=== PATIENT | male | born 1955 | race Caucasian/White ===

== ENCOUNTER 2016-05-10 07:04 | Inpatient (IN) | payer OTHER ==
--- NOTE | ~2016-05-10 | OR ---
Unit #: [id number] #: [id number] Patient: DARIA CARCAMO [id number] [address] [address] [id number] I MR#: [id number] NAME: DARIA CARCAMO. ROOM: 302 Date of Procedure: 05/11/2016 Admission Date: 05/10/2016 Surgeon: Guanako Mendez M.D. : 1955 Attending Physician: Tena Townsend M.D. Primary Care Physician: Primary Care Physician No OPERATIVE REPORT PREPROCEDURE DIAGNOSIS Right elbow septic olecranon bursitis. POSTPROCEDURE DIAGNOSIS Right elbow septic olecranon bursitis. PROCEDURE PERFORMED Aspiration of right elbow olecranon bursa. INDICATIONS FOR PROCEDURE Mr. Carcamo is a 60-year-old gentleman with cellulitis of the right upper extremity with swollen olecranon bursa concerning for septic olecranon bursitis. Aspiration is indicated. DESCRIPTION OF PROCEDURE The patient was identified supine on his hospital bed. The arm was placed across the chest on a pillow. The area was prepped with Betadine solution. An 18-gauge needle was utilized to aspirate the olecranon bursa yielding 7.5 mL of frankly purulent fluid. The area was then cleaned and dressed with a Band-Aid. DISPOSITION Plan for formal I and D with olecranon bursectomy in the operating room this afternoon. Fluid sent for culture. Dictated by... Cesar Castaneda/emelia TD: 05/11/2016 22:32 JOB #: [id number] Unit #: [id number] #: [id number] Patient: DARIA CARCAMO OPERATIVE REPORT X Guanako Mendez MD PROCEDURE OPERATIVE NOTE
--- NOTE | ~2016-05-10 | CO ---
Unit #: [id number] #: [id number] Patient: DARIA GUILLEN [id number] [address] [address] [id number] I MR#: [id number] NAME: DARIA GUILLEN. ROOM: 302 Age: 60 Sex: M Admission Date: 05/10/2016 : 1955 Attending Physician: Tena Townsend M.D. Consultation Date: 05/10/2016 CONSULTATION REPORT HISTORY OF PRESENT ILLNESS Mr. Guillen is a 60-year-old white male, known to me, with a history of severe COPD, chronic respiratory failure, who presented to the emergency room because of a 3-week history of increased shortness of breath and cough. He denied any fever or chills. He had been seen in our office by nurse practitioner and being given steroids, but had not improved. In the emergency department, he was noted to have swollen right forearm and elbow. His blood pressure was 94/61, pulse was 121, O2 saturation was 98% on 4 L. Chest x-ray showed no acute infiltrate. We were asked to see. PAST MEDICAL HISTORY Significant for acute on chronic hypoxemic hypercarbic respiratory failure, severe COPD. PAST SURGICAL HISTORY He has no past surgical history. ALLERGIES No known allergies. HOME MEDICATIONS Motrin, Combivent, albuterol, Symbicort, Robaxin, naproxen, aspirin, Xanax, and prednisone. FAMILY HISTORY Diabetes. SOCIAL HISTORY Quit smoking 4 months ago. Retired from welding. Full code. Lives with granddaughter. REVIEW OF SYSTEMS CONSTITUTIONAL: No definite fevers or chills. HEENT: No rhinorrhea or nasal congestion. PULMONARY: Increased shortness of breath and wheezing and cough. GI: No nausea or vomiting. : No hematuria or dysuria. ENDOCRINE: No polyuria or polydipsia. HEMATOLOGIC: No easy bruising or bleeding. SKIN: Does have some swelling and redness of the right forearm and elbow. NEURO: No unilateral weakness or numbness. PHYSICAL EXAMINATION GENERAL: White male, in mild distress. Unit #: [id number] #: [id number] Patient: DARIA GUILLEN VITAL SIGNS: Blood pressure 96/66, pulse 90, respiratory rate 20, afebrile. HEENT: Normocephalic and atraumatic. Pupils are equal, round, and reactive. Sclerae nonicteric. Nasal passages patent. Poor dentition. Mucous membranes moist. NECK: Supple. Trachea midline. No cervical or supraclavicular lymphadenopathy. LUNGS: Reveal expiratory wheeze bilaterally. CARDIAC: Regular rate and rhythm. Could not appreciate murmur, rub, or gallop. ABDOMEN: Nontender. Bowel sounds present. No hepatosplenomegaly. EXTREMITIES: Without clubbing, cyanosis, or edema. Right forearm is swelling around the elbow, some erythema. Radial pulses present. DIAGNOSTIC STUDIES LABORATORY RESULTS: Reviewed. Arterial blood gases, pH 7.41, pCO2 of 56, pO2 of 99 on 3 L. Glucose 146, creatinine normal. IMAGING STUDIES: Chest x-ray is personally reviewed. IMPRESSION 1. Likely septic joint. 2. Chronic obstructive pulmonary disease exacerbation. 3. Acute on chronic hypoxemic respiratory failure. RECOMMENDATIONS Inhaled bronchodilators, IV Solu-Medrol, supplemental oxygen. Broad-spectrum antibiotics for a joint space infection. Orthopedics to see for evaluating joint space infection. Dictated by... Luigi Belcher M.D. SAMANTHA/emelia TD: 05/11/2016 20:54 JOB #: [id number] CONSULTATION REPORT X Luigi Belcher MD X CONSULTATION REPORT
--- NOTE | ~2016-05-10 | CR72 ---
[facility] A Service of [facility] RADIOLOGY TEXT RESULTS PATIENT: DARIA GUILLEN LOCATION: [facility] : 59 UNIT #: [id number] AGE: [address]: Chris White MD SEX: M ORDER DR: [id number] [facility] [address] [place], [place] [address] [id number] E MR#: [id number] Acc #: [id number] NAME: DARIA GUILLEN. : 1955 SEX: M STUDY DATE/TIME: 05/10/2016 6:36 UNIT: [facility] ROOM: STUDY DESCRIPTION: CR Chest Single View Portable Attending Physician: Chris White M.D. Ordering Physician: Chris White M.D. Primary Care Physician: Primary Care Physician No MEDICAL IMAGING REPORT This report is preliminary unless electronic signature is present EXAM Portable chest HISTORY Difficulty breathing for 3-4 days, shortness of air. COMPARISON 06/26/2015. FINDINGS Portable view of the chest demonstrates marked hyperinflation and hyperlucency compatible with underlying emphysema. No acute airspace disease or consolidation. No effusions. Heart, mediastinum unremarkable except for minimal aortic atherosclerotic changes. Parenchymal opacity in the left midlung zone noted on the patient's study of June 2015 has resolved. No invasive tubes or lines. No visible pneumothorax. Dictated by... Evie Meza M.D. THIS IS AN ELECTRONICALLY VERIFIED REPORT Evie Meza M.D. at 05/10/2016 8:10 AM KENNETH/silviano TD: 05/10/2016 08:06 JOB #: [id number] MEDICAL IMAGING REPORT COPY
--- NOTE | ~2016-05-10 | CR94 ---
[facility] A Service of [facility] RADIOLOGY TEXT RESULTS PATIENT: DARIA GUILLEN LOCATION: [facility] : 59 UNIT #: [id number] AGE: [address]: Tomasa Gordon MD SEX: M ORDER DR: [id number] [place] [address] [place], [place] [address] [id number] MR#: [id number] Acc #: [id number] NAME: DARIA GUILLEN. : 1955 SEX: M STUDY DATE/TIME: 05/10/2016 6:39 UNIT: [facility] ROOM: STUDY DESCRIPTION: CR Elbow Min 3 Views Rt Attending Physician: Chris White M.D. Ordering Physician: Chris White M.D. Primary Care Physician: Primary Care Physician No MEDICAL IMAGING REPORT This report is preliminary unless electronic signature is present EXAM Right elbow 3 views HISTORY Pain, swelling right elbow x3 days. FINDINGS 3 views of the right elbow demonstrate soft tissue swelling about the elbow and possibly within the forearm. No fracture or dislocation. No joint effusion. No radiopaque foreign body. No definite soft tissue gas. IMPRESSION Soft tissue swelling about the elbow most prominent along the posterior aspect of the elbow. No definite internal derangement of the joint. Underlying osseous structures unremarkable. Findings could reflect cellulitis and if focal in the posterior elbow could represent olecranon bursitis. There does appear to be proximal forearm soft tissue swelling as well which would tend to favor cellulitis. Dictated by... Evie Meza M.D. THIS IS AN ELECTRONICALLY VERIFIED REPORT Evie Meza M.D. at 05/10/2016 3:57 PM KENNETH/silviano TD: 05/10/2016 08:07 JOB #: [id number] MEDICAL IMAGING REPORT COPY
--- NOTE | ~2016-05-10 | HP ---
Unit #: [id number] #: [id number] Patient: DARIA GUILLEN [id number] [address] [address] [id number] I MR#: [id number] NAME: DARIA GUILLEN. ROOM: 01105 Age: 60 Sex: M Admission Date: 05/10/2016 : 1955 Attending Physician: Tomasa Gordon M.D. Primary Care Physician: No Primary Care Physician HISTORY AND PHYSICAL CHIEF COMPLAINT Shortness of breath. HISTORY OF PRESENT ILLNESS The patient is a 60-year-old male with a past medical history of COPD, chronic respiratory failure who presented to the emergency department for evaluation of the above. The patient states that he has had at least a two to three week history of increasing shortness of breath and nonproductive cough. He states that he has had chest wall pain in association with a cough. He denies any fever. No vomiting or diarrhea. No urinary symptoms. He states that he has been to Dr. Belcher's office, but no actually seen Dr. Belcher. The most recent time was last week when he was given prednisone. He has been taking it as prescribed with no improvement of his symptoms. In the emergency department initial oxygen saturation was 98% on 4 L. Pulse 121, blood pressure 94/61. Chest x-ray shows no acute abnormality. He was given 125 mg of Solu-Medrol, as well as two L of normal saline in the emergency department. Also of note, the patient reports right elbow pain. He states that he noted a "knot" on his right elbow on the day prior to admission. He states that he may have bumped his elbow getting in an out of the car but he did not remember for sure. He states that today his elbow because increasing swollen, red and painful. An x-ray was done and showed findings concerning for possible cellulitis versus olecranon bursitis. He was given a dose of vancomycin. PAST MEDICAL HISTORY 1. Admission to [facility] 04/18/2014 through 04/23/2014 for acute on chronic respiratory failure. 2. COPD followed by Dr. Belcher. 3. Chronic respiratory failure on 2 L of oxygen per nasal cannula. PAST SURGICAL HISTORY None. SOCIAL HISTORY The patient's 8-year-old granddaughter lives with him. He quit smoking four months ago. He is retired from [email or web address]. His code status is a full code. FAMILY HISTORY Notable for his mother having diabetes. Unit #: [id number] #: [id number] Patient: DARIA GUILLEN ALLERGIES No known allergies. HOME MEDICATIONS Motrin 600 mg q.12 hours p.r.n.; Combivent inhaled q.6 hours p.r.n.; albuterol two puffs q.4 hours p.r.n.; Symbicort 160/4.5 two puffs inhaler twice daily; Robaxin 500 mg q.12 hours p.r.n.; naproxen 500 mg twice daily p.r.n.; aspirin 81 mg daily; Xanax 0.25 mg q.12 hours p.r.n.; prednisone 20 mg daily. REVIEW OF SYSTEMS A complete review of systems is negative except as indicated in the HPI. PHYSICAL EXAMINATION VITAL SIGNS: Temperature is 98.2 pulse 121, respirations 22, blood pressure 94/61, oxygen saturation 98% on 4 L. GENERAL: The patient is a male who is awake and alert. HEENT: Head is atraumatic. Mucous membranes are moist. NECK: Supple. Trachea is midline. CARDIOVASCULAR: Regular rate and rhythm. LUNGS: Demonstrate inspiratory and expiratory wheezes. Breathing is mildly labored with conversation. ABDOMEN: Soft, nontender with bowel sounds present in all four quadrant. EXTREMITIES: There is no pedal edema. Lower extremities are nontender. NEUROLOGIC: The patient is awake and alert. He follows commands. PSYCH: Mood and affect are normal. Patient is cooperative. SKIN: The right elbow demonstrates an area of erythema, warmth, edema, and tenderness to palpation. The edema extends to involve the forearm. He has decreased range of motion secondary to pain. There is a 2+ radial pulse. DIAGNOSTIC STUDIES CARDIOLOGY STUDIES: EKG shows sinus tachycardia with a rate of 107 BPM. IMAGING STUDIES: Chest x-ray shows no acute abnormality. Elbow x-rays show findings concerning for possible bursitis versus cellulitis. LABORATORY STUDIES: Troponin is less than 0.05. Arterial blood gas shows a pH 7.41, pCO2 56.2, pO2 99 on 3 L. Rapid flu screen is negative. Lactic acid 1.3, comprehensive metabolic panel notable for chloride of 95, bicarb 36, albumin 3.3. Complete blood count notable for white blood cell count of 19.8. BNP is 38, INR 0.9. D-dimer 457. ASSESSMENT The patient is a 60-year-old male with: 1. COPD exacerbation. The patient received Solu-Medrol in the emergency department. 2. Chronic respiratory failure on 3 L of oxygen per nasal cannula continuous. 3. Right elbow pain concerning for possible bursitis versus cellulitis. The patient received vancomycin the emergency department. 4. Sepsis. The patient's white blood cell count is 19.8 and he is tachycardic. Of note, he has been on steroids. 5. Former smoker. PLANS Unit #: [id number] #: [id number] Patient: DARIA GUILLEN 1. Admit to an intermediate level. 2. Normal saline at 75 mL an hour. 3. Healthy heart diet. 4. Supplemental oxygen 2 to 4 L to maintain saturations greater than 92%. 5. DuoNeb q.4 hours while awake and q. 2 hours p.r.n. 6. Solu-Medrol 80 mg IV q.12 hours. 7. Mucinex 600 mg p.o. b.i.d. 8. Consult Dr. Belcher regarding COPD exacerbation. 9. Blood cultures x2 if not done. 10. Vancomycin IV and Zosyn IV pending further workup. 11. Consult orthopedics about bursitis versus cellulitis. 12. Protonix for GI prophylaxis since the patient will be on Solu-Medrol. 13. SCDs for DVT prophylaxis. 14. Repeat labs in the morning. 15. Additional workup and consults based on above. Dictated by Cesar Drummond/tiffany TD: 05/10/2016 12:03 JOB #: [id number] HISTORY AND PHYSICAL X Tomasa Gordon MD X HISTORY AND PHYSICAL
--- NOTE | ~2016-05-10 | OR ---
Unit #: [id number] #: [id number] Patient: DARIA CARCAMO [id number] [address] [address] [id number] I MR#: [id number] NAME: DARIA CARCAMO. ROOM: 302 Date of Procedure: 05/11/2016 Admission Date: 05/10/2016 Surgeon: Guanako Mendez M.D. : 1955 Attending Physician: Tena Townsend M.D. Primary Care Physician: Primary Care Physician No OPERATIVE REPORT PREOPERATIVE DIAGNOSIS Right septic olecranon bursitis. POSTOPERATIVE DIAGNOSIS Right septic olecranon bursitis. PROCEDURE PERFORMED Right elbow debridement with olecranon bursectomy. SIZE PAINTER Delfina Alexandre APRN, RNFA. ANESTHESIA General. ESTIMATED BLOOD LOSS 10 mL. SPECIMENS Cultures to microbiology. COMPLICATIONS None apparent. INDICATIONS FOR PROCEDURE Mr. Carcamo is a 60-year-old gentleman with septic olecranon bursitis by aspiration. Operative intervention was warranted for debridement. The nature of the surgery was discussed with the patient. He elected to proceed. DESCRIPTION OF PROCEDURE The patient was identified in the preoperative holding area. The operative site was marked. The patient is on standing IV antibiotics and further preoperative antibiotics were not indicated. The patient was brought to the operating room and placed supine on the operating table. A general anesthetic was induced. The patient was positioned supine with the right upper extremity across his chest. The arm was exsanguinated with gravity exsanguination. An Esmarch bandage applied around the upper arm as a tourniquet. The Esmarch was not used to exsanguinate the extremity. The skin incision was marked out over the olecranon curving slightly radially around the tip of the olecranon. The skin was incised sharply. Dissection was carried down to the subcutaneous tissue. Unit #: [id number] #: [id number] Patient: DARIA CARCAMO Immediately upon entering the bursa, a large volume of purulent fluid was expressed under pressure. Cultures were obtained. Medial and lateral skin flaps were then elevated and circumferential dissection carried out around the affected bursal tissues. The bursa was excised with dissection with a 15 and 10-blade knife. This was then passed off the back table. The area was then debrided further with rongeurs. The wound was then irrigated. Hemostasis was achieved with Bovie electrocautery. The tourniquet was removed and the remaining vessels were cauterized. The wound was again irrigated and then closed with 3-0 nylon over a subcutaneous drain. Well-padded soft dressing was applied. DISPOSITION Stable to the recovery room. Dictated by... Cesar Castaneda/emelia TD: 05/12/2016 00:31 JOB #: [id number] OPERATIVE REPORT X Guanako Mendez MD X PROCEDURE OPERATIVE NOTE
--- NOTE | ~2016-05-10 | EKG ---
PATIENT: DARIA GUILLEN UNIT #: [id number] Ventricular Rate: 107 BPM Atrial Rate: 107 BPM P-R Interval: 130 ms QRS Duration: 76 ms Q-T Interval: 310 ms QTC Calculation(Bezet): 413 ms P [place]: 80 degrees Calculated R [place]: 67 degrees Calculated T [place]: 74 degrees Diagnosis Line: Sinus tachycardia Diagnosis Line: Otherwise normal ECG Diagnosis Line: When compared with ECG of 26-JUN-2015 18:05, Diagnosis Line: No significant change was found Diagnosis Line: Confirmed by URSZULA KELSEY MD ([id number]) on 05/10/2016 Diagnosis Line: 6:25:02 PM INTERPRETING MD: LOW [place]
--- NOTE | ~2016-05-10 | DS ---
Unit #: [id number] #: [id number] Patient: DARIA GUILLEN [id number] [address] [address] [id number] I MR#: [id number] NAME: DARIA GUILLEN. ROOM: 302 Age: Sex: M Admission Date: 05/10/2016 : 1955 Discharge Date: Attending Physician: Tena Townsend M.D. Primary Care Physician: No Primary Care Physician DISCHARGE SUMMARY DIAGNOSES ON ADMISSION 1. Acute exacerbation of chronic obstructive pulmonary disease. 2. Acute on chronic respiratory failure. 3. Right elbow pain. DIAGNOSES ON DISCHARGE 1. Acute exacerbation of chronic obstructive pulmonary disease, improved. 2. Chronic respiratory failure. 3. Right septic olecranon bursitis status post debridement secondary to Streptococcus pyrogenes. 4. Sepsis, resolved. CONSULTATIONS 1. Dr. Belcher in Pulmonary consultation. 2. Dr. Mendez in Orthopaedic consultation. LABS AND PROCEDURES DONE 1. The patient had a right elbow debridement. 2. The patient's creatinine is 0.6, sodium 145, potassium 4.1. WBC 11.0, hemoglobin 11.1, platelet count 256. 3. The patient's wound culture was positive for Streptococcus pyrogenes. 4. Blood culture did not reveal any growth so far. 5. Influenza A and B screen was negative. 6. Hemoglobin A1C was 6.0. 7. BNP was 38. 8. Chest x-ray revealed COPD. No acute disease. HOSPITAL COURSE This 60-year-old male was admitted to [facility] with shortness of air. Details are as per admission H and P. Acute exacerbation of COPD: The patient was seen by Dr. Belcher in consultation and was treated with Solu-Medrol which was gradually tapered off and the patient is on prednisone now. He is feeling much better. Acute on chronic respiratory failure: The patient is on home O2 and is currently on three liters of oxygen which he uses at home. Right elbow pain: The patient was seen by Dr. Mendez in consultation and diagnosed with septic olecranon bursitis and debridement was performed. Wound cultures are positive for Streptococcus pyrogenes. The patient is feeling much better today and wants to go home. Unit #: [id number] #: [id number] Patient: DARIA GUILLEN PHYSICAL EXAMINATION VITAL SIGNS: Temperature 98.1. Pulse 72 per minute. Respiratory rate 18 per minute. Blood pressure 167/87. HEENT: No conjunctival congestion. Sclerae are nonicteric. NECK: Supple. Trachea is central. RESPIRATORY: Decreased breath sounds bilaterally. There are no wheezes or crackles. HEART: Regular rate and rhythm. S1, S2. ABDOMEN: Soft, nontender. Bowel sounds are present in all four quadrants. EXTREMITIES: (1) edema. There is a right elbow dressing. SKIN: Warm and dry. CONDITION Stable. ACTIVITY As tolerated. MEDICATIONS ON DISCHARGE 1. Ventolin two puffs q.4 hours p.r.n. for shortness of air 2. Symbicort 160/4.5 mcg p.o. daily. 3. DuoNeb mini neb treatment q.4 hours while awake and q.2 hours p.r.n. 4. Prednisone as per Dr. Belcher. 5. Tylenol 650 mg p.o. daily. 6. Nystatin 5 mL swish and swallow for one week. 7. Enteric coated aspirin 81 mg p.o. daily. 8. Hydrocodone 5 mg one p.o. q.8 hours p.r.n., #15 were dispensed. 9. Methocarbamol 500 mg p.o. b.i.d. p.r.n. pain. 10. Augmentin 875 mg p.o. b.i.d. for one week. FOLLOWUP The patient is advised to follow up with primary care physician in one week and with Dr. Mendez and Dr. Belcher as recommended. The patient is advised to call primary care physician or go to ER if his condition changes. The plan was discussed in detail with the patient who showed complete understanding. The patient is advised to call primary care physician or go to ER if his condition changes. Additional job #[id number] 05/16/2016 9:34 a.m. Dictated by... Cesar Rangel TD: 05/16/2016 10:09 JOB #: [id number] CC: Luigi Belcher M.D. Unit #: [id number] #: [id number] Patient: DARIA GUILLEN DISCHARGE SUMMARY X Tena Townsend MD DISCHARGE SUMMARY
--- NOTE | ~2016-05-10 | CO ---
Unit #: [id number] #: [id number] Patient: DARAI CARCAMO [id number] [address] [address] [id number] I MR#: [id number] NAME: DARIA CARCAMO. ROOM: 302 Age: 60 Sex: M Admission Date: 05/10/2016 : 1955 Attending Physician: Tena Townsend M.D. Primary Care Physician: Primary Care Physician No Consultation Date: 05/10/2016 CONSULTATION REPORT CHIEF COMPLAINT Right elbow pain. HISTORY OF PRESENT ILLNESS Mr. Carcamo is a 60-year-old gentleman with COPD, on 2 L of oxygen chronically, who is being admitted with chronic respiratory failure and COPD exacerbation and technically meets sepsis criteria. He additionally has a 1 to 2 day history of right elbow pain and swelling. He is uncertain that he has struck or bumped the right elbow getting out of a vehicle. His elbow has become increasingly tender to the touch and there was some painful swelling in his forearm as well. He denies any similar illness. He denies any fevers or chills at home. PAST MEDICAL HISTORY 1. Chronic respiratory failure, on 2 L of oxygen per nasal cannula. 2. COPD. 3. History of a recent admission for COPD exacerbation. PAST SURGICAL HISTORY None. MEDICATIONS Motrin, Combivent, Symbicort, albuterol, Robaxin, naproxen, aspirin, Xanax, prednisone. ALLERGIES No known drug allergies. SOCIAL HISTORY The patient has no current alcohol or tobacco use. He has only stopped smoking as of 4 months ago. He has an 8-year-old granddaughter, who lives with him. He is retired. He is a full code. FAMILY HISTORY Diabetes mellitus in his mother. REVIEW OF SYSTEMS Ten systems are reviewed and negative except as noted in the HPI, as well as shortness of breath. PHYSICAL EXAMINATION GENERAL APPEARANCE: He appears older than stated age. He is somewhat disheveled appearing. HEENT: Normocephalic and atraumatic cranium. Pupils are equally round Unit #: [id number] #: [id number] Patient: DARIA CARCAMO and reactive to light. NECK: Supple. No lymphadenopathy. No JVD. CARDIAC: Regular rate and rhythm. PULMONARY: No increased work of breathing. Speaks in full sentences. He has audible expiratory wheeze. ABDOMEN: Nontender, nondistended. NEUROLOGIC: Intact median, ulnar, and radial nerve motor and sensory function in the right hand. VASCULAR: His hand is warm and well perfused. SKIN: He has soft tissue swelling about the dorsal forearm of the right upper extremity. There was cellulitis overlying the forearm and the olecranon. MUSCULOSKELETAL: He has a small olecranon bursitis with a fairly small fluid collection here. There is no overt evidence of septic bursitis. There is no induration. The erythema seems diminished from where this was marked out previously on the skin. He does have some painful range of motion from 30 to 105. Overall, exam is not indicative of septic arthritis of the elbow joint itself however. DIAGNOSTIC STUDIES IMAGING STUDIES: Plain film radiographs reviewed and demonstrates soft tissue swelling, but otherwise unremarkable. LABORATORY RESULTS: White blood cell count is elevated at 19.8. IMPRESSION A 60-year-old gentleman with right elbow pain with olecranon bursitis and surrounding cellulitis. It is not clear if this is a true septic olecranon bursitis. PLAN At this point, we will continue to follow his response to IV antibiotics. It appears that his cellulitis is actually improved from the area which was marked out over the elbow previously. We will follow the evolution of his clinical exam. If he fails to have continued improvement, we may aspirate the olecranon bursa tomorrow. He will be n.p.o. after midnight in case surgical intervention should be required if he fails overnight IV antibiotics. Dictated by... Cesar Castaneda/emelia TD: 05/11/2016 15:23 JOB #: [id number] CONSULTATION REPORT X Guanako Mendez MD CONSULTATION REPORT
[2016-05-10 06:54] LABS: POC - CKMB 3.1 ng/mL (0.0-7.9); POC - TROPONIN <0.05 ng/mL (<=0.05)
[2016-05-10 07:04] LABS: ARTERIAL BLD GAS O2 SATURATION 95.4 % (90.0-100.0); ARTERIAL BLOOD GAS HCO3 35.6 mmol/L
[~2016-05-10 07:04] MED LIST: ACETAMINOPHEN325 MG PO; ALBUTEROL17 GM INH; ALPRAZOLAM PO; ALPRAZOLAM0.25 MG PO; ASPIRIN EC81 M1 PO; ASPIRIN81 M2 PO; BENZONATATE PO; COMBIVENT MININEB INH; COMBIVENT RESPIM4 GM INH; COMBIVENT U/D3 M1 INH; EC-NAPROSYN500 MG PO; GUAIFENESIN600 MG PO; IPRAT-ALBUT 0.5-3 ML INH; LEVAQUIN PO; LEVOFLOXACIN500 MG PO; LIPITOR20 MG PO; MOTRIN600 M1 PO; MUCINEX DM ER1 EACH PO; NICOTINE TRANSD14 MG EXT; NICOTINE TRANSD21 MG TP; NO MEDICATIONS; PREDNISONE PO; PROAIR HFA8.5 GM IH; PULMICORT0.5 MG/2 M IH; QVAR7.3 G1 IH; ROBAXIN500 MG PO; SYMBICORT INH; ZYLOPRIM PO
[2016-05-10 07:05] LABS: ARTERIAL BLOOD GAS PCO2 56.2 mmHg (35.0-45.0)
[2016-05-10 07:06] LABS: ARTERIAL BLOOD GAS ALLEN TEST NORMAL; ARTERIAL BLOOD GAS ART SITE LEFT RADIAL; ARTERIAL BLOOD GAS DELIVERY NASAL CANNULA; ARTERIAL DRAW? YES
[2016-05-10 07:13] LABS: BASOPHIL# 0.1 X10e3 (0-0.3); BASOPHIL% 0.3 % (0-2.5); EOSINOPHIL% 0.1 % (0.0-7.0); HEMATOCRIT 40.7 % (38.0-50.0); HEMOGLOBIN 13.5 gm/dL (13.0-16.0); LYMPHOCYTE% 5.2 % (17.0-45.0); MEAN CELL VOLUME 97.4 FL (83-96); MEAN CORPUSCULAR HEMOGLOBIN 32.4 PG (28-34); MEAN CORPUSCULAR HGB CONC 33.3 g/dL (30-36); MEAN PLATELET VOLUME 7.7 FL (6.5-11.5); MONOCYTE# 1.2 X10e3 (0-1.0); NEUTROPHIL# 17.6 X10e3 (1.5-7.1); NEUTROPHIL% 88.4 % (40-75); PLATELET COUNT 260 X10e3 (140-420); RED BLOOD COUNT 4.18 X10e (3.90-5.60); RED CELL DISTRIBUTION WIDTH 15.4 % (11.0-15.5); WHITE BLOOD COUNT 19.8 X10e3 (4.0-10.5)
[2016-05-10 07:14] LABS: DIFF IND YES
[2016-05-10 07:21] LABS: INFLUENZA A NEG (NEG); INFLUENZA B NEG (NEG)
[2016-05-10 07:29] LABS: INR 0.9; PARTIAL THROMBOPLASTIN TIME 24.7 SECONDS (23.5-31.3); PROTHROMBIN TIME (PATIENT) 9.7 SECONDS (9.6-11.5)
[2016-05-10 07:37] LABS: ALBUMIN SERUM 3.3 g/dL (3.5-5.0); ALKALINE PHOSPHATASE 71 U/L (32-92); ALT (SGPT) 22 U/L (10-40); AST (SGOT) 18 U/L (10-42); BILIRUBIN, DIRECT 0.2 mg/dL (0.0-0.2); BILIRUBIN,INDIRECT 0.6 mg/dL (0.0-0.9); BILIRUBIN,TOTAL 0.8 mg/dL (0.2-2.0); BLOOD UREA NITROGEN 13 mg/dL (9-23); BUN/CREATININE RATIO 14.44; CALCIUM SERUM 8.5 mg/dL (8.4-10.2); CARBON DIOXIDE 36 mmol/L (22-31); CHLORIDE 95 mmol/L (100-111); CREATININE SERUM 0.9 mg/dL (0.6-1.4); GLOM FILT RATE Estimated ABOVE60 mL/min (>60); GLUCOSE FASTING 85 mg/dL (70-110); POTASSIUM 4.1 mmol/L (3.5-5.1); PROTEIN TOTAL SERUM 6.4 g/dL (6.0-8.3); SODIUM 137 mmol/L (135-145)
[2016-05-10 07:42] LABS: PLATELET ESTIMATE NORMAL (NORMAL); RBC NORMAL YES
[2016-05-10 07:43] LABS: ANISOCYTOSIS SL
[2016-05-10 08:12] LABS: POC - CKMB 1.4 ng/mL (0.0-7.9); POC - TROPONIN <0.05 ng/mL (<=0.05)
[2016-05-10 09:56] LABS: CK TOTAL 40 IU/L (36-174)
[2016-05-10 16:40] LABS: CK TOTAL 30 IU/L (36-174)
[2016-05-11 06:08] LABS: BASOPHIL# 0.1 X10e3 (0-0.3); BASOPHIL% 0.3 % (0-2.5); HEMATOCRIT 35.2 % (38.0-50.0); LYMPHOCYTE# 0.5 X10e3 (1.0-3.5); LYMPHOCYTE% 2.2 % (17.0-45.0); MEAN CELL VOLUME 98.6 FL (83-96); MEAN CORPUSCULAR HEMOGLOBIN 31.4 PG (28-34); MEAN CORPUSCULAR HGB CONC 31.8 g/dL (30-36); MONOCYTE# 0.9 X10e3 (0-1.0); MONOCYTE% 3.8 % (3.0-12.0); NEUTROPHIL# 22.7 X10e3 (1.5-7.1); NEUTROPHIL% 93.7 % (40-75); PLATELET COUNT 218 X10e3 (140-420); RED BLOOD COUNT 3.57 X10e (3.90-5.60); RED CELL DISTRIBUTION WIDTH 15.3 % (11.0-15.5); WHITE BLOOD COUNT 24.2 X10e3 (4.0-10.5)
[2016-05-11 06:10] LABS: DIFF IND NO; HEMOGLOBIN 11.2 gm/dL (13.0-16.0)
[2016-05-11 06:51] LABS: ALBUMIN SERUM 2.4 g/dL (3.5-5.0); ALKALINE PHOSPHATASE 57 U/L (32-92); ALT (SGPT) 19 U/L (10-40); AST (SGOT) 16 U/L (10-42); BILIRUBIN,TOTAL 0.6 mg/dL (0.2-2.0); BLOOD UREA NITROGEN 17 mg/dL (9-23); BUN/CREATININE RATIO 21.25; CALCIUM SERUM 8.6 mg/dL (8.4-10.2); CARBON DIOXIDE 30 mmol/L (22-31); CHLORIDE 105 mmol/L (100-111); CREATININE SERUM 0.8 mg/dL (0.6-1.4); GLOM FILT RATE Estimated ABOVE60 mL/min (>60); GLUCOSE FASTING 146 mg/dL (70-110); POTASSIUM 4.2 mmol/L (3.5-5.1); PROTEIN TOTAL SERUM 5.2 g/dL (6.0-8.3); SODIUM 142 mmol/L (135-145)
[2016-05-12 05:56] LABS: HEMATOCRIT 30.9 % (38.0-50.0); MEAN CELL VOLUME 98.8 FL (83-96); MEAN CORPUSCULAR HEMOGLOBIN 31.8 PG (28-34); MEAN CORPUSCULAR HGB CONC 32.2 g/dL (30-36); MEAN PLATELET VOLUME 8.4 FL (6.5-11.5); RED BLOOD COUNT 3.13 X10e (3.90-5.60); RED CELL DISTRIBUTION WIDTH 15.4 % (11.0-15.5)
[2016-05-12 07:13] LABS: BLOOD UREA NITROGEN 17 mg/dL (9-23); BUN/CREATININE RATIO 24.28; CALCIUM SERUM 8.4 mg/dL (8.4-10.2); CARBON DIOXIDE 30 mmol/L (22-31); CHLORIDE 105 mmol/L (100-111); CREATININE SERUM 0.7 mg/dL (0.6-1.4); GLOM FILT RATE Estimated ABOVE60 mL/min (>60); GLUCOSE FASTING 150 mg/dL (70-110); POTASSIUM 4.1 mmol/L (3.5-5.1); SODIUM 142 mmol/L (135-145)
[2016-05-13 05:14] LABS: HEMATOCRIT 31.6 % (38.0-50.0); HEMOGLOBIN 10.1 gm/dL (13.0-16.0); MEAN CELL VOLUME 98.8 FL (83-96); MEAN CORPUSCULAR HEMOGLOBIN 31.6 PG (28-34); MEAN CORPUSCULAR HGB CONC 31.9 g/dL (30-36); MEAN PLATELET VOLUME 8.3 FL (6.5-11.5); RED BLOOD COUNT 3.2 X10e (3.90-5.60); RED CELL DISTRIBUTION WIDTH 15.8 % (11.0-15.5); WHITE BLOOD COUNT 24.2 X10e3 (4.0-10.5)
[2016-05-13 06:33] LABS: BLOOD UREA NITROGEN 18 mg/dL (9-23); CALCIUM SERUM 8.3 mg/dL (8.4-10.2); CARBON DIOXIDE 36 mmol/L (22-31); CHLORIDE 103 mmol/L (100-111); CREATININE SERUM 0.5 mg/dL (0.6-1.4); GLOM FILT RATE Estimated ABOVE60 mL/min (>60); GLUCOSE FASTING 116 mg/dL (70-110); POTASSIUM 4.3 mmol/L (3.5-5.1); SODIUM 144 mmol/L (135-145)
[2016-05-15 05:48] LABS: HEMATOCRIT 33.1 % (38.0-50.0); HEMOGLOBIN 10.6 gm/dL (13.0-16.0); MEAN CELL VOLUME 97.1 FL (83-96); MEAN CORPUSCULAR HEMOGLOBIN 31.2 PG (28-34); MEAN CORPUSCULAR HGB CONC 32.1 g/dL (30-36); MEAN PLATELET VOLUME 7.9 FL (6.5-11.5); RED BLOOD COUNT 3.41 X10e (3.90-5.60); RED CELL DISTRIBUTION WIDTH 15.4 % (11.0-15.5); WHITE BLOOD COUNT 12.5 X10e3 (4.0-10.5)
[2016-05-15 06:49] LABS: BLOOD UREA NITROGEN 18 mg/dL (9-23); CALCIUM SERUM 8.5 mg/dL (8.4-10.2); CARBON DIOXIDE 36 mmol/L (22-31); CHLORIDE 97 mmol/L (100-111); CREATININE SERUM 0.6 mg/dL (0.6-1.4); GLOM FILT RATE Estimated ABOVE60 mL/min (>60); GLUCOSE FASTING 130 mg/dL (70-110); POTASSIUM 4.5 mmol/L (3.5-5.1); SODIUM 140 mmol/L (135-145)
[2016-05-16 06:02] LABS: HEMOGLOBIN 11.1 gm/dL (13.0-16.0); MEAN CELL VOLUME 98.1 FL (83-96); MEAN CORPUSCULAR HEMOGLOBIN 31.9 PG (28-34); MEAN CORPUSCULAR HGB CONC 32.5 g/dL (30-36); MEAN PLATELET VOLUME 7.8 FL (6.5-11.5); RED BLOOD COUNT 3.47 X10e (3.90-5.60); RED CELL DISTRIBUTION WIDTH 15.4 % (11.0-15.5)
[2016-05-16 06:48] LABS: BLOOD UREA NITROGEN 15 mg/dL (9-23); CALCIUM SERUM 8.9 mg/dL (8.4-10.2); CARBON DIOXIDE 38 mmol/L (22-31); CHLORIDE 97 mmol/L (100-111); CREATININE SERUM 0.6 mg/dL (0.6-1.4); GLOM FILT RATE Estimated ABOVE60 mL/min (>60); GLUCOSE FASTING 105 mg/dL (70-110); POTASSIUM 4.1 mmol/L (3.5-5.1); SODIUM 145 mmol/L (135-145)
[2016-05-16] MEDS ORDERED: AUGMENTIN875 MG PO (14:55)
[2016-05-16] MEDS ORDERED: HYDROCODON-ACE1 EAC7 PO (14:55)
[2016-05-17] MEDS ORDERED: PAIN RELIEF325 M1 PO (13:29)
[2016-05-17] MEDS ORDERED: NYSTATIN5 ML PO (13:30)
[2016-05-17] MEDS ORDERED: KEFLEX500 MG PO (13:31)
== END 2016-05-17 15:53 | disposition home or self-care (01) | DRG 853 ==
LOC: CED 07:04 → CEDOF 08:23 → C3A PCU 18:48
PROVIDERS: Emergency Medicine; Family Medicine; Internal Medicine; Orthopaedic Surgery
PROC: 0R9L3ZX Drainage of Right Elbow Joint, Percutaneous Approach, Diagnostic (ICD-10-PCS; 2016-05-11)
PROC: 0MB30ZZ Excision of Right Elbow Bursa and Ligament, Open Approach (ICD-10-PCS; principal; 2016-05-11 14:00)
DX: A40.8 Other streptococcal sepsis (principal); J96.21 Acute and chronic respiratory failure with hypoxia; Z99.81 Dependence on supplemental oxygen; M00.221 Other streptococcal arthritis, right elbow; J44.1 Chronic obstructive pulmonary disease with (acute) exacerbation; L03.113 Cellulitis of right upper limb; B95.4 Other streptococcus as the cause of diseases classified elsewhere; M71.121 Other infective bursitis, right elbow; Z87.891 Personal history of nicotine dependence
CPT/HCPCS: 36415; 36600; 71010; 73080; 80048; 80053; 80076; 80202; 82550; 82553; 82803; 83036; 83605; 83735; 83880; 84484; 85025; 85027; 85379; 85610; 85730; 87040; 87070; 87075; 87077; 87205; 87804; 93005; 94640; 94664; 94760; 96361; 96374; 97163; 99285; J1040; J2405; J2543; J2920; J2930; J3010; J3370

== ENCOUNTER 2016-06-03 10:46 | Inpatient (IN) | payer OTHER ==
--- NOTE | ~2016-06-03 | CR72 ---
[facility] A Service of [facility] RADIOLOGY TEXT RESULTS PATIENT: DARIA GUILLEN LOCATION: [facility] [id number] : [birth year] UNIT #: [id number] AGE: [address]: Saul Berger MD SEX: M ORDER DR: [id number] [facility] [address] [place], [place] [address] [id number] MR#: [id number] Acc #: [id number] NAME: DARIA GUILLEN. : 1955 SEX: M STUDY DATE/TIME: 06/04/2016 18:08 UNIT: [facility] ROOM: [facility] STUDY DESCRIPTION: CR Chest Single View Portable Attending Physician: Saul Berger M.D. Ordering Physician: Anabella Gallagher M.D. Primary Care Physician: No Primary Care Physician MEDICAL IMAGING REPORT This report is preliminary unless electronic signature is present EXAM AP view of the chest COMPARISON June 03, 2016, May 11, 2016 and June 26, 2015. INDICATIONS 60-year-old male with dyspnea and weakness for 3 days. FINDINGS There is lung hyperexpansion and emphysema, grossly stable. No evidence of pneumothorax, pleural effusion or acute airspace disease. Cardiomediastinal silhouette is normal. There are new gas-distended bowel loops below the right and left hemidiaphragm, nonspecific. IMPRESSION 1. Stable findings of COPD and emphysema. No evidence of acute airspace disease, pneumothorax or pleural effusion. 2. Mildly increased gaseous distension of bowel loops in the upper abdomen of uncertain significance. Clinical correlation to exclude signs of bowel obstruction recommended. Dictated by... Klever Knox M.D. THIS IS AN ELECTRONICALLY VERIFIED REPORT Klever Knox M.D. at 06/07/2016 4:13 PM BLM/bd TD: 06/05/2016 07:41 JOB #: [id number] MEDICAL IMAGING REPORT [facility] A [facility] RADIOLOGY TEXT RESULTS PATIENT: DARIA GUILLEN LOCATION: [facility] [id number] : [birth year] UNIT #: [id number] AGE: [address]: Saul Berger MD SEX: M ORDER DR: Page 1 of 1 COPY
--- NOTE | ~2016-06-03 | CO ---
Unit #: [id number] #: [id number] Patient: DARIA CARCAMO [id number] [address] [address] [id number] I MR#: [id number] NAME: DARIA CARCAMO. ROOM: [facility] Age: 60 Sex: M Admission Date: 06/03/2016 : 1955 Attending Physician: Saul Berger M.D. Primary Care Physician: No Primary Care Physician CONSULTATION REPORT Mr. Carcamo is a 60-year-old white male with severe COPD and chronic respiratory failure, maintained on home O2 at 3 L, who presented to the emergency room with increased shortness of breath. He had been smoking more. Chest x-ray showed hyperinflated lung romano, flattened diaphragms. He was also noted to have swelling around his olecranon bursa from which he recently had surgery for septic bursitis. He underwent surgery, had a local block. Postoperatively, he has become more short of breath. We were asked to see. Arterial blood gases revealed a pH of 7.24, pCO2 of 92, pO2 of 66 on 5 L. Previous blood gases during his last admission revealed a pH of 7.41, pCO2 of 56, pO2 of 99, on 3 L. He has continued to smoke some. He is, at this point, too dyspneic to speak. PAST MEDICAL HISTORY Significant for: 1. Severe COPD. 2. Chronic respiratory failure, maintained on oxygen at 3 L per minute. 3. Chronic hypoxemic/hypercarbic respiratory failure. MEDICATIONS Home medications include: 1. Robaxin. 2. Aspirin. 3. Prednisone. 4. Combivent. 5. Ventolin. 6. Symbicort. 7. Hydrocodone. 8. Nystatin. ALLERGIES No known allergies. SURGERIES Resection of olecranon septic bursitis. FAMILY HISTORY Diabetes. SOCIAL HISTORY Had really cut down from smoking four months ago. Still smokes some. Retired from welding. Full Code. Lives with granddaughter. REVIEW OF SYSTEMS Not possible. Patient too dyspneic to speak. Unit #: [id number] #: [id number] Patient: DARIA CARCAMO PHYSICAL EXAMINATION VITAL SIGNS: Blood pressure is 170/100, pulse 122, respiratory rate 24, afebrile. HEENT: Normocephalic, atraumatic. Pupils equal, round, reactive. Sclerae are nonicteric. Poor dentition. NECK: Supple. Trachea midline. No cervical or supraclavicular lymphadenopathy. He is using accessory muscles of respiration. Able to speak in short words. LUNGS: Reveal expiratory wheezes. Tight, diminished breath sounds. CARDIAC: Tachycardic. Could not appreciate murmur, rub or gallop. ABDOMEN: Nontender. Bowel sounds present. No hepatosplenomegaly. EXTREMITIES: Without clubbing, cyanosis, edema. Homans sign negative. No cords palpated. DIAGNOSTIC STUDIES LABORATORY: Laboratory studies - personally reviewed as noted. CBC reviewed. BMP reviewed. IMAGING: Chest x-ray - reviewed as noted. IMPRESSION 1. Acute and chronic hypoxemic/hypercarbic respiratory failure. 2. Acute exacerbation of chronic obstructive pulmonary disease, likely aggravated by tobacco. 3. Postop exploration of olecranon bursa, status post removal of hematoma. PLAN Will give 30 minute bronchodilator treatment, magnesium, steroids. BiPAP if needed. He initially refused BiPAP. He has also refused intubation but will re-discuss with him code status, etc. Dictated by... Luigi Belcher M.D. SAMANTHA/miladis TD: 06/05/2016 08:44 JOB #: [id number] CONSULTATION REPORT Page 1 of 1 X Luigi Belcher MD CONSULTATION REPORT
--- NOTE | ~2016-06-03 | HP ---
Unit #: [id number] #: [id number] Patient: DARIA GUILLEN [id number] [address] [address] [id number] I MR#: [id number] NAME: DARIA GUILLEN. ROOM: 567 Age: 60 Sex: M Admission Date: 06/03/2016 : 1955 Attending Physician: Iris Doss M.D. Primary Care Physician: No Primary Care Physician HISTORY AND PHYSICAL CHIEF COMPLAINT Shortness of breath. The patient is a 60-year-old male with a history of COPD and chronic respiratory failure on home oxygen at 3 L, presented to the emergency room complaining of shortness of breath for the last couple of days. The patient stated the patient has been smoking occasionally and the last smoke was yesterday. The patient had multiple admissions in the past and was recently discharged from the hospital on May 16. The patient also complains of shortness of breath, associated nonproductive cough. Denies any chest pain, any dizziness, any palpitations. The patient follows with the pulmonary group, Dr. Belcher, but has not seen Dr. Belcher in the office. The patient was found to be hypoxic (1) at room air and was put on her oxygen. The patient is sat'ing 90% to 93% at 4 L and the patient is being admitted for the above reasons. The patient also complains of pain of the right elbow. The patient had the right elbow olecranon bursitis, status post I and D with cultures positive for Strep pyogenes. The patient was discharged home without antibiotics for unknown reasons. The patient complains of the swelling coming back and is complaining of more pain. Denies any fever or chills or trauma. PAST MEDICAL HISTORY 1. History of COPD. 2. History of chronic respiratory failure. 3. Olecranon bursitis. SURGICAL HISTORY I and D of olecranon bursitis. SOCIAL HISTORY The patient lives with the granddaughter. He is retired from [employer]. His code status is Full Code from the records. FAMILY HISTORY Notable for mother having diabetes. ALLERGIES No known drug allergies. HOME MEDICATIONS He is on: 1. Robaxin. 2. Aspirin. 3. Prednisone. Unit #: [id number] #: [id number] Patient: DARIA GUILLEN 4. Combivent. 5. Respimat. 6. Ventolin. 7. Symbicort. 8. Hydrocodone. 9. Augmentin. 10. Statin. 11. Cephalexin. REVIEW OF SYSTEMS Fourteen point review of systems was performed and only pertinent positive findings are described above, remaining are negative. PHYSICAL EXAMINATION GENERAL: The patient is lying on the bed, not in acute distress. VITALS: Temperature 99.5, pulse 137, respiratory rate 26, blood pressure 130/72, sat'ing 92% at 4 L. HEAD: Atraumatic, normocephalic. EENT: Pupils equal, round, reactive to light and accommodation. Extraocular movements are intact. Dry mucous membranes. NECK: Supple. No JVD. LUNGS: Decreased air entry at the bases. Positive for expiratory wheezing. HEART: Regular rate and rhythm. ABDOMEN: Soft. Positive bowel sounds. EXTREMITIES: Swelling of the right olecranon bursitis, status post I and D with tenderness and fluctuance. Extremities - no cyanosis, no clubbing. NEURO: Alert, awake, oriented. No gross motor focal deficit. DIAGNOSTIC STUDIES LABORATORY DATA: pH 7.3, pCO2 73.4, pO2 54, bicarb 37.7, oxygen saturation 84.2. Glucose 79, BUN 12, creatinine 0.6, sodium 140, potassium 4.7, chloride 96, bicarb 35, calcium 9, total protein 7.9, AST 40, ALT 53, alkaline phosphatase 84. BNP is 44. Lactic acid is 1.1. WBC 17.8, hemoglobin 12.8, hematocrit 39.3, platelets 256, neutrophils 88.5%, bands 2. Flu screen is negative. IMAGING: Chest x-ray is negative. Severe emphysema, no acute disease. CARDIOVASCULAR: EKG shows sinus tachycardia with PACs and aberrant conductions and right atrial enlargement with a rate of 126 beats per minute, QTC of 402. ASSESSMENT AND PLAN 1. Chronic obstructive pulmonary disease exacerbation. 2. Right elbow olecranon bursitis, status post incision and drainage with recurrent swelling, to rule out recurrent bursitis. 3. Chronic respiratory failure, on home oxygen. Plan to admit the patient to inpatient telemetry. Continue with IV Solu-Medrol 40 mg q.12. Will have the pulmonary consult with Dr. Belcher. Unit #: [id number] #: [id number] Patient: DARIA GUILLEN Repeat the x-ray of the right elbow to rule out acute collection and ortho eval for the repeat I and D. Will start the patient on empiric Rocephin 1 gm daily as the patient has been on Augmentin for the Strep pyogenes olecranon bursitis. Repeat the CBC and BMP in the morning and further recommendations will follow. Dictated by Cesar Hopson TD: 06/04/2016 07:56 JOB #: [id number] HISTORY AND PHYSICAL Page 1 of 1 X X HISTORY AND PHYSICAL
--- NOTE | ~2016-06-03 | CR94 ---
[facility] A Service of [facility] RADIOLOGY TEXT RESULTS PATIENT: DARIA GUILLEN LOCATION: [facility] [id number] : [birth year] UNIT #: [id number] AGE: [address]: Saul Berger MD SEX: M ORDER DR: [id number] [facility] [address] [place], [place] [address] [id number] I MR#: [id number] #: [id number] NAME: DARIA GUILLEN. : 1955 SEX: M STUDY DATE/TIME: 06/03/2016 17:15 UNIT: [facility] ROOM: [facility] STUDY DESCRIPTION: CR Elbow Min 3 Views Rt Attending Physician: Saul Berger M.D. Ordering Physician: Ed Chun Chacon M.D. Primary Care Physician: No Primary Care Physician MEDICAL IMAGING REPORT This report is preliminary unless electronic signature is present EXAM Left elbow, 3 views. HISTORY Elbow pain and swelling and effusion. Symptoms for 3 weeks. FINDINGS 3 views of the right elbow demonstrate moderately severe soft tissue swelling over the posterior elbow. Bone alignment is satisfactory. No fracture, joint space narrowing, bony erosion, or opaque soft tissue foreign body. IMPRESSION 1. Moderately severe soft tissue swelling along the posterior margin of the elbow. 2. Study is otherwise negative. No fracture or joint space narrowing. Dictated by... Montrell Woodruff M.D. THIS IS AN ELECTRONICALLY VERIFIED REPORT Montrell Woodruff M.D. at 06/04/2016 3:04 PM DFL/alison TD: 06/04/2016 09:03 JOB #: [id number] MEDICAL IMAGING REPORT Page 1 of 1 COPY
--- NOTE | ~2016-06-03 | CO ---
Unit #: [id number] #: [id number] Patient: DARIA GUILLEN [id number] [address] [place], [place] [address] [id number] I MR#: [id number] NAME: DARIA GUILLEN. ROOM: 567 Age: 60 Sex: M Admission Date: 06/03/2016 : 1955 Attending Physician: Iris Doss M.D. Consultation Date: 06/03/2016 CONSULTATION REPORT CHIEF COMPLAINT Right elbow swelling. HISTORY OF PRESENT ILLNESS Mr. Guillen is a 60-year-old gentleman, who is well known to me from prior olecranon bursectomy for septic olecranon bursitis on 05/10/2016. He is now returned to the emergency department complaining of shortness of breath and is being admitted for COPD exacerbation. However, note has been made of a painful swelling over the posterior aspect of the right elbow. He states that since his last visit to our office, he has noted progressive swelling and erythema. He is becoming increasingly painful with range of motion. He denies any purulent drainage from the area. PAST MEDICAL HISTORY Chronic respiratory failure, chronic oxygen supplementation, tobacco abuse. PAST SURGICAL HISTORY Right olecranon bursectomy on 05/10/2016. MEDICATIONS Ventolin, Symbicort, DuoNeb, prednisone, Tylenol, nystatin, aspirin, hydrocodone, methocarbamol, and Augmentin. ALLERGIES No known drug allergies. SOCIAL HISTORY The patient is trying to stop smoking. He uses no alcohol. He is retired. He has an 8-year-old granddaughter, who lives with them. FAMILY HISTORY Diabetes mellitus in his mother. REVIEW OF SYSTEMS Ten systems reviewed and negative except as noted in the HPI. PHYSICAL EXAMINATION GENERAL APPEARANCE: A 60-year-old gentleman appearing older than stated age. HEENT: Normocephalic and atraumatic cranium. Poor dentition. Disheveled hair. CARDIAC: Regular rate and rhythm. Unit #: [id number] #: [id number] Patient: DARIA GUILLEN PULMONARY: Inspiratory and expiratory wheezing. Short of breath with conversation. ABDOMEN: Soft, nontender, and nondistended. NEUROLOGIC: Intact median, ulnar, and radial nerve. Motor and sensory function in the right hand. SKIN: There is a large tense soft tissue swelling over the right elbow. There is surrounding ruborous dark streaking erythema. VASCULAR: His hand is warm and well perfused. MUSCULOSKELETAL: The surgical incision is well healed from his previous bursectomy. There appears to be some hematoma material type draining out proximally. There is no fluid drainage. There is no purulent drainage. Overall appearance is consistent with a possible hematoma versus recurrent septic bursitis. DIAGNOSTIC STUDIES LABORATORY RESULTS: White blood cell count 17.8. INR 0.9. BMP is unremarkable. IMAGING STUDIES: Plain film radiographs of the right elbow reviewed unremarkable. IMPRESSION A 60-year-old gentleman with a right elbow postoperative wound hematoma versus recurrent septic olecranon bursitis. PLAN Given the large tense fluid collection around the right elbow, he will require repeat irrigation and debridement of this area with possible revision olecranon bursectomy. If this is recurrent infection, this may be left open to heal by secondary intention. We will plan for repeat I and D tomorrow. He will be n.p.o. after midnight. Dictated by... Guanako Mendez M.D. VANIA/emelia TD: 06/04/2016 03:40 JOB #: [id number] CONSULTATION REPORT Page 1 of 1 X Guanako Mendez MD CONSULTATION REPORT
--- NOTE | ~2016-06-03 | EKG ---
PATIENT: DARIA GUILLEN UNIT #: [id number] Ventricular Rate: 126 BPM Atrial Rate: 126 BPM P-R Interval: 126 ms QRS Duration: 74 ms Q-T Interval: 278 ms QTC Calculation(Bezet): 402 ms P [place]: 85 degrees Calculated R [place]: 89 degrees Calculated T [place]: 44 degrees Diagnosis Line: Sinus tachycardia with Premature atrial complexes Diagnosis Line: with Aberrant conduction Diagnosis Line: Baseline wander Diagnosis Line: Pulmonary disease pattern Diagnosis Line: Abnormal ECG Diagnosis Line: When compared with ECG of 10-MAY-2016 07:15, Diagnosis Line: Aberrant conduction is now Present Diagnosis Line: T wave amplitude has increased in Lateral leads Diagnosis Line: Confirmed by URSZULA KELSEY MD ([id number]) on 06/04/2016 Diagnosis Line: 10:58:31 PM INTERPRETING MD: LOW NEWTON
--- NOTE | ~2016-06-03 | CR72 ---
[facility] A Service of [facility] RADIOLOGY TEXT RESULTS PATIENT: DARIA GUILLEN LOCATION: [facility] [id number] : 59 UNIT #: [id number] AGE: [address]: Saul Berger MD SEX: M ORDER DR: [id number] [facility] [address] [place], [place] [address] [id number] I MR#: [id number] #: [id number] NAME: DARIA GUILLEN. : 1955 SEX: M STUDY DATE/TIME: 06/03/2016 10:45 UNIT: [facility] ROOM: [facility] STUDY DESCRIPTION: CR Chest Single View Portable Attending Physician: Iris Doss M.D. Ordering Physician: Neymar Downs M.D. Primary Care Physician: Primary Care Physician No MEDICAL IMAGING REPORT This report is preliminary unless electronic signature is present EXAM Portable chest HISTORY Shortness of breath and congestion for the past 2 days. COMPARISON 05/10/2016 TECHNIQUE Single view of the chest was obtained. FINDINGS Emphysematous changes are again noted. No new infiltrates are seen. The heart and mediastinum are stable and the vascular markings are normal. IMPRESSION Severe emphysema. No active infiltrates seen. Dictated by... Ever Elizalde M.D. THIS IS AN ELECTRONICALLY VERIFIED REPORT Ever Elizalde M.D. at 06/05/2016 9:45 AM BRAYAN/mallika TD: 06/03/2016 22:28 JOB #: [id number] MEDICAL IMAGING REPORT Page 1 of 1 COPY
--- NOTE | ~2016-06-03 | OR ---
Unit #: [id number] #: [id number] Patient: DARIA CARCAMO [id number] [address] [address] [id number] I MR#: [id number] NAME: DARIA CARCAMO. ROOM: [facility] Date of Procedure: 06/04/2016 Admission Date: 06/03/2016 Surgeon: Guanako Mendez M.D. : 1955 Attending Physician: Saul Berger M.D. OPERATIVE REPORT PREOPERATIVE DIAGNOSIS Right elbow postoperative wound hematoma. POSTOPERATIVE DIAGNOSIS Right elbow postoperative wound hematoma. PROCEDURE PERFORMED Right elbow hematoma evacuation. ANESTHESIA Supraclavicular nerve block with local anesthetic as well. INDICATIONS FOR PROCEDURE Mr. Carcamo is a 60-year-old gentleman, who has been admitted with a COPD exacerbation. He has painful swelling at the site of his prior right elbow olecranon bursectomy for septic bursitis. There is a tense fluid collection, what appears to be potentially a hematoma material and an area of dehiscence at the most proximal extent of the incision. There was no purulent fluid noted. Evacuation of fluid collection is indicated. DESCRIPTION OF PROCEDURE The patient was identified in the preoperative holding area. The operative site was marked. The patient has labored breathing and therefore a regional anesthetic was felt to be most prudent. A supraclavicular nerve block was performed. The patient was then brought to the operating room on his hospital bed. The patient was kept on the hospital bed throughout the procedure without any sedation. He was kept in an upright position secondary to orthopnea. The right upper extremity was then prepped and draped in sterile fashion. A 15-blade knife was used to reopen the excision slightly distally from the area of spontaneous dehiscence. Hemostat was then used to break up clotted hematoma. This was expressed out of the wound. There was no evidence of any recurrent purulence or infection. There was a large volume of old hematoma evacuated. The wound was then irrigated with sterile saline via bulb lavage. The wound was then reclosed with 3-0 nylon over a subcutaneous medium Hemovac drain. A compressive sterile dressing was applied. DISPOSITION Stable to the recovery room. Unit #: [id number] #: [id number] Patient: DARIA CARCAMO Dictated by... Cesar Castaneda/emelia TD: 06/05/2016 01:05 JOB #: [id number] OPERATIVE REPORT Page 1 of 1 X Guanako Mendez MD PROCEDURE OPERATIVE NOTE
[2016-06-03 10:29] LABS: ARTERIAL BLD GAS O2 SATURATION 84.2 % (90.0-100.0); ARTERIAL BLOOD GAS CARBOXY HB 1.8 %sat (0.0-9.0); ARTERIAL BLOOD GAS HCO3 37.7 mmol/L; ARTERIAL BLOOD GAS PCO2 73.4 mmHg (35.0-45.0); ARTERIAL BLOOD GAS PO2 54.2 mmHg (80.0-100)
[2016-06-03 10:30] LABS: ARTERIAL BLOOD GAS ALLEN TEST NORMAL; ARTERIAL BLOOD GAS ART SITE LEFT RADIAL; ARTERIAL BLOOD GAS DELIVERY NASAL CANNULA; ARTERIAL DRAW? YES
[~2016-06-03 10:46] MED LIST changes: +AUGMENTIN875 MG PO; +HYDROCODON-ACE1 EAC7 PO; +KEFLEX500 MG PO; +NYSTATIN5 ML PO; +PAIN RELIEF325 M1 PO
[2016-06-03 10:54] LABS: BASOPHIL% 0.1 % (0-2.5); EOSINOPHIL% 0.1 % (0.0-7.0); HEMATOCRIT 39.3 % (38.0-50.0); HEMOGLOBIN 12.8 gm/dL (13.0-16.0); LYMPHOCYTE# 1.1 X10e3 (1.0-3.5); LYMPHOCYTE% 5.9 % (17.0-45.0); MEAN CELL VOLUME 99.3 FL (83-96); MEAN CORPUSCULAR HEMOGLOBIN 32.3 PG (28-34); MEAN CORPUSCULAR HGB CONC 32.5 g/dL (30-36); MEAN PLATELET VOLUME 8.3 FL (6.5-11.5); MONOCYTE% 5.4 % (3.0-12.0); NEUTROPHIL# 15.7 X10e3 (1.5-7.1); NEUTROPHIL% 88.5 % (40-75); PLATELET COUNT 256 X10e3 (140-420); RED BLOOD COUNT 3.96 X10e (3.90-5.60); RED CELL DISTRIBUTION WIDTH 16.4 % (11.0-15.5); WHITE BLOOD COUNT 17.8 X10e3 (4.0-10.5)
[2016-06-03 11:03] LABS: INR 0.9; PROTHROMBIN TIME (PATIENT) 9.6 SECONDS (9.6-11.5)
[2016-06-03 11:18] LABS: DIFF IND YES
[2016-06-03 11:20] LABS: ANISOCYTOSIS SL; PLATELET ESTIMATE NORMAL (NORMAL)
[2016-06-03 11:27] LABS: BILIRUBIN, DIRECT 0.3 mg/dL (0.0-0.2); BILIRUBIN,INDIRECT 0.8 mg/dL (0.0-0.9); BILIRUBIN,TOTAL 1.1 mg/dL (0.2-2.0); CREATININE SERUM 0.6 mg/dL (0.6-1.4); GLOM FILT RATE Estimated 110.9 mL/min (>60); POTASSIUM 4.7 mmol/L (3.5-5.1); PROTEIN TOTAL SERUM 7.9 g/dL (6.0-8.3)
[2016-06-03 11:38] LABS: POC - CKMB 3.6 ng/mL (0.0-7.9); POC - TROPONIN <0.05 ng/mL (<=0.05)
[2016-06-04 08:28] LABS: HEMATOCRIT 34.7 % (38.0-50.0); HEMOGLOBIN 11.4 gm/dL (13.0-16.0); LYMPHOCYTE# 0.4 X10e3 (1.0-3.5); LYMPHOCYTE% 3.6 % (17.0-45.0); MEAN CELL VOLUME 100.3 FL (83-96); MEAN CORPUSCULAR HEMOGLOBIN 32.9 PG (28-34); MEAN CORPUSCULAR HGB CONC 32.8 g/dL (30-36); MEAN PLATELET VOLUME 7.6 FL (6.5-11.5); MONOCYTE# 0.4 X10e3 (0-1.0); MONOCYTE% 3.8 % (3.0-12.0); NEUTROPHIL# 9.6 X10e3 (1.5-7.1); NEUTROPHIL% 92.6 % (40-75); PLATELET COUNT 206 X10e3 (140-420); RED BLOOD COUNT 3.46 X10e (3.90-5.60); WHITE BLOOD COUNT 10.4 X10e3 (4.0-10.5)
[2016-06-04 08:30] LABS: DIFF IND NO
[2016-06-04 08:44] LABS: BUN/CREATININE RATIO 22.85; CALCIUM SERUM 9.1 mg/dL (8.4-10.2); CREATININE SERUM 0.7 mg/dL (0.6-1.4); GLOM FILT RATE Estimated 104.1 mL/min (>60); POTASSIUM 4.3 mmol/L (3.5-5.1)
[2016-06-04 13:39] LABS: ARTERIAL BLOOD GAS PCO2 92.6 mmHg (35.0-45.0); ARTERIAL BLOOD GAS PO2 66.8 mmHg (80.0-100)
[2016-06-04 13:40] LABS: ARTERIAL BLD GAS O2 SATURATION 87.8 % (90.0-100.0); ARTERIAL BLOOD GAS CARBOXY HB 0.9 %sat (0.0-9.0); ARTERIAL BLOOD GAS HCO3 39.7 mmol/L; ARTERIAL BLOOD GAS MET HB 1.2 %sat (0.0-2.0)
[2016-06-04 13:41] LABS: ARTERIAL BLOOD GAS ALLEN TEST NORMAL; ARTERIAL BLOOD GAS ART SITE RIGHT RADIAL; ARTERIAL BLOOD GAS DELIVERY NASAL CANNULA; ARTERIAL DRAW? YES
[2016-06-05 07:27] LABS: BUN/CREATININE RATIO 27.14; CALCIUM SERUM 8.7 mg/dL (8.4-10.2); CREATININE SERUM 0.7 mg/dL (0.6-1.4); GLOM FILT RATE Estimated 104.1 mL/min (>60); POTASSIUM 5.1 mmol/L (3.5-5.1)
== END 2016-06-06 14:51 | disposition expired | DRG 919 ==
LOC: CED 10:46 → CEDOF 11:30 → C5C 20:10 → CICCU3 06-04 17:00 → C4B 06-06 00:30
PROVIDERS: Emergency Medicine; Internal Medicine; Orthopaedic Surgery
PROC: 0JCH0ZZ Extirpation of Matter from Left Lower Arm Subcutaneous Tissue and Fascia, Open Approach (ICD-10-PCS; principal; 2016-06-04 15:00)
DX: L76.32 Postprocedural hematoma of skin and subcutaneous tissue following other procedure (principal); J96.22 Acute and chronic respiratory failure with hypercapnia; J96.21 Acute and chronic respiratory failure with hypoxia; T81.31XA Disruption of external operation (surgical) wound, not elsewhere classified, initial encounter; J44.1 Chronic obstructive pulmonary disease with (acute) exacerbation; Z83.3 Family history of diabetes mellitus; Z79.82 Long term (current) use of aspirin; Z79.52 Long term (current) use of systemic steroids; Y83.9 Surgical procedure, unspecified as the cause of abnormal reaction of the patient, or of later complication, without mention of misadventure at the time of the procedure; Z51.5 Encounter for palliative care; Z66 Do not resuscitate
CPT/HCPCS: 36415; 36600; 71010; 73080; 80048; 80076; 82553; 82803; 83605; 83880; 84484; 85025; 85610; 87040; 93005; 94640; 94644; 94760; 94761; 99291; J0360; J0696; J1650; J2060; J2250; J2270; J2795; J2920; J2930; J3475